=== PATIENT | female | born 2000 | race Two or more races ===

== ENCOUNTER → 2024-03-08 10:03 | Outpatient (CLI) | payer OTHER ==
[~2024-03-08 10:03] MED LIST: PRENATE DHA SO1 EAC1
== END | disposition home or self-care (01) ==
LOC: PRENATAL 10:03
PROVIDERS: ATTEND Obstetrics & Gynecology Maternal & Fetal Medicine
DX: O36.80X0 Pregnancy with inconclusive fetal viability, not applicable or unspecified (principal); Z36.82 Encounter for antenatal screening for nuchal translucency; Z36.9 Encounter for antenatal screening, unspecified; Z14.8 Genetic carrier of other disease; Z3A.12 12 weeks gestation of pregnancy

== ENCOUNTER 2024-03-09 09:15 | Emergency (ER) | payer OTHER ==
[~2024-03-09] VITALS: Ht 154.9 cm; Wt 58.1 kg
[2024-03-09] MEDS ORDERED: PRENATE DHA SO1 EAC1 (09:54)
[2024-03-09] MEDS ORDERED: 0.9 % SODIUM CHLORIDE 1,000 ML IV STA (10:04)
[2024-03-09] MEDS ORDERED: ONDANSETRON HCL 2 MG/ML VIAL IV STA (10:04)
[2024-03-09] MEDS ORDERED: FAMOTIDINE/PF 20 MG in 0.9 % SODIUM CHLORIDE 8 ML IV PUSH STA (10:05)
[2024-03-09] MEDS ORDERED: FAMOTIDINE/PF 20 MG/2 ML VIAL ONE (10:29)
[2024-03-09] MEDS ORDERED: ONDANSETRON HCL 2 MG/ML VIAL ONE (10:29)
[2024-03-09 10:52] LABS: HEMATOCRIT 40.9 % (36.0-45.00); MEAN CELL VOLUME 93.7 fL (80.00-100.00); MEAN CORPUSCULAR HEMOGLOBIN 32.1 pg (27.00-32.0); MEAN CORPUSCULAR HGB CONC 34.3 g/dl (32.0-36.0); PLATELET COUNT 203 K/uL (150-450); RED BLOOD COUNT 4.37 M/uL (4.00-6.00); RED CELL DISTRIBUTION WIDTH 12.9 % (11.5-14.5)
[2024-03-09 11:28] LABS: URINE APPEARANCE Cloudy; URINE BILIRRUBIN Negative (NEGATIVE); URINE BLOOD Negative; URINE COLOR Dark Yellow; URINE GLUCOSE Negative (NEGATIVE); URINE LEUKOCYTE Small; URINE NITRATE Negative; URINE PROTEIN Trace (NEGATIVE); URINE UROBILINOGEN 0.2 E.U./dl
[2024-03-09 11:31] LABS: URINE BACTERIA 8937.5 uL (0.0-1933); URINE CAST 1.61 uL (0.0-1.40); URINE EPITHELIAL CELLS 107.6 uL (0.0-38.8); URINE RBC 65.1 uL (0.0-20.8); URINE WBC 99.2 uL (0.0-23.2)
[2024-03-09 11:35] LABS: URINE KETONE >=160 (NEGATIVE)
[2024-03-09 12:17] LABS: CALCIUM 9.2 mg/dL (8.5-10.1); CREATININE SERUM 0.55 mg/dL (0.55-1.02); GFR 134.67; POTASSIUM 3.66 mEq/L (3.5-5.1)
== END 2024-03-09 15:17 | disposition home or self-care (01) ==
LOC: ER 09:17
PROVIDERS: Emergency Medicine
DX: O00.01 Abdominal pregnancy with intrauterine pregnancy (principal); R11.10 Vomiting, unspecified

== ENCOUNTER 2024-04-28 08:03 | Outpatient (CLI) | payer OTHER | END 2024-04-28 08:04 | disposition home or self-care (01) | LOC: PRENATAL 08:03 | PROVIDERS: ATTEND Obstetrics & Gynecology Maternal & Fetal Medicine | DX: O44.00 Complete placenta previa NOS or without hemorrhage, unspecified trimester (principal); Z3A.20 20 weeks gestation of pregnancy ==

== ENCOUNTER 2024-07-20 10:31 | Outpatient (CLI) | payer OTHER | END 2024-07-20 10:32 | disposition home or self-care (01) | LOC: PRENATAL 10:31 | PROVIDERS: ATTEND Obstetrics & Gynecology Maternal & Fetal Medicine | DX: O26.849 Uterine size-date discrepancy, unspecified trimester (principal); O36.8199 Decreased fetal movements, unspecified trimester, other fetus; O36.5990 Maternal care for other known or suspected poor fetal growth, unspecified trimester, not applicable or unspecified; Z3A.31 31 weeks gestation of pregnancy ==

== ENCOUNTER 2024-08-07 16:00 | Outpatient (CLI) | payer OTHER | END 2024-08-07 16:01 | disposition home or self-care (01) | LOC: PRENATAL 16:00 | PROVIDERS: ATTEND Obstetrics & Gynecology Maternal & Fetal Medicine | DX: O26.849 Uterine size-date discrepancy, unspecified trimester (principal); O36.8199 Decreased fetal movements, unspecified trimester, other fetus; O36.5990 Maternal care for other known or suspected poor fetal growth, unspecified trimester, not applicable or unspecified; Z3A.33 33 weeks gestation of pregnancy ==

== ENCOUNTER 2024-08-20 18:20 | Emergency (ER) | payer OTHER ==
[~2024-08-20] VITALS: Ht 154.9 cm; Wt 65.3 kg
[2024-08-20] MEDS ORDERED: ONDANSETRON HCL 2 MG/ML VIAL ONE (19:38)
[2024-08-20] MEDS ORDERED: FAMOTIDINE/PF 20 MG/2 ML VIAL ONE (19:38)
[2024-08-20] MEDS ORDERED: ACETAMINOPHEN 500 MG GEL..CAP PO ONE ×2 (19:38→19:45)
[2024-08-20] MEDS ORDERED: FAMOTIDINE/PF 20 MG/2 ML VIAL IV ONE (19:45)
[2024-08-20] MEDS ORDERED: ONDANSETRON HCL 2 MG/ML VIAL IV ONE (19:45)
[2024-08-20 20:03] LABS: BASO % 0.4 % (0.1-1.2); EOS # 0.04 (0.04-0.54); EOS % 0.5 % (0.7-7.0); HEMATOCRIT 33.5 % (34.1-44.9); HEMOGLOBIN 11.5 g/dL (11.2-15.7); LYMPH # 2.14 (1.18-3.74); LYMPH % 27.1 % (19.3-53.1); MEAN CORPUSCULAR HEMOGLOBIN 31.1 pg (25.6-32.2); MONO # 0.56 (0.24-0.82); MONO % 7.1 % (4.7-12.5); NEUT # 5.08 (1.56-6.13); NEUT % 64.4 % (34.0-71.1); PLATELET COUNT 246 K/uL (163-369)
[2024-08-20 20:22] LABS: PH,URINE 5.5 (5.0-8.0); URINE APPEARANCE Cloudy; URINE BILIRRUBIN Negative (NEGATIVE); URINE BLOOD Negative; URINE COLOR Yellow; URINE GLUCOSE Negative (NEGATIVE); URINE KETONE Trace (NEGATIVE); URINE LEUKOCYTE Moderate; URINE NITRATE Negative; URINE PROTEIN Negative (NEGATIVE); URINE UROBILINOGEN 0.2 E.U./dl
[2024-08-20 20:25] LABS: URINE EPITHELIAL CELLS 12.9 uL (0.0-38.8); URINE WBC 186.1 uL (0.0-23.2)
[2024-08-20 20:45] LABS: URINE CAST 1.17 uL (0.0-1.40); URINE YEAST NEGATIVE /hpf
[2024-08-20 20:53] LABS: ALBUMIN 2.7 gm/dL (3.4-5.0); BILIRUBIN TOTAL 0.28 mg/dL (0.3-1.2); CALCIUM 8.7 mg/dL (8.5-10.1); CREATININE SERUM 0.48 mg/dL (0.55-1.02); GFR 156.33; GLOBULINA 4.3 G/DL (2.4-3.5); POTASSIUM 3.47 mEq/L (3.5-5.1)
[2024-08-20 21:07] LABS: COVID-19 AG NEGATIVE (NEGATIVE)
[2024-08-20 21:09] LABS: INFLUENZA A AG NEGATIVE (NEGATIVE); INFLUENZA B AG NEGATIVE (NEGATIVE)
[2024-08-20] MEDS ORDERED: CEFTRIAXONE SODIUM 1,000 MG VIAL ONE (21:27)
[2024-08-20] MEDS ORDERED: CEPHALEXIN500 M1 PO (21:27)
[2024-08-20] MEDS ORDERED: CEFTRIAXONE SODIUM 1,000 MG VIAL IM ONE (21:30)
== END 2024-08-20 21:49 ==
LOC: ER 18:37
PROVIDERS: General Practice
DX: O23.40 Unspecified infection of urinary tract in pregnancy, unspecified trimester (principal); R11.0 Nausea; R51.9 Headache, unspecified; Z20.822 Contact with and (suspected) exposure to COVID-19

== ENCOUNTER 2024-09-07 14:29 | Outpatient (CLI) | payer OTHER ==
[2024-09-07 14:06] VITALS: BP 112/77
[~2024-09-07 14:29] MED LIST changes: +CEPHALEXIN500 M1 PO
[2024-09-07] MEDS ORDERED: RINGERS SOLUTION,LACTATED 1,000 ML IV SCH (14:45)
[2024-09-07 15:06] LABS: URINE APPEARANCE Turbid; URINE BILIRRUBIN Negative (NEGATIVE); URINE BLOOD Moderate; URINE COLOR Yellow; URINE GLUCOSE Negative (NEGATIVE); URINE KETONE Negative (NEGATIVE); URINE LEUKOCYTE Moderate; URINE NITRATE Negative; URINE PROTEIN Trace (NEGATIVE); URINE UROBILINOGEN 0.2 E.U./dl
[2024-09-07 15:06] LABS: BASO % 0.3 % (0.1-1.2); EOS # 0.03 (0.04-0.54); EOS % 0.3 % (0.7-7.0); LYMPH # 1.81 (1.18-3.74); LYMPH % 16.2 % (19.3-53.1); MEAN PLATELET VOLUME 11.40 fl (9.4-12.4); MONO # 0.73 (0.24-0.82); MONO % 6.5 % (4.7-12.5); NEUT # 8.50 (1.56-6.13); NEUT % 76.0 % (34.0-71.1); RED CELL DISTRIBUTION WIDTH 13.2 % (11.6-14.4)
[2024-09-07 15:09] LABS: URINE CAST 3.37 uL (0.0-1.40); URINE EPITHELIAL CELLS 69.2 uL (0.0-38.8); URINE RBC 20.8 uL (0.0-20.8); URINE WBC 308.6 uL (0.0-23.2)
[2024-09-07 15:28] LABS: TYPE CELLS SQUAMOUS; URINE BACTERIA > 9821.5 uL (0.0-1933); URINE MUCUS SCANT
[2024-09-07 16:36] VITALS: BP 113/69
[2024-09-07 20:00] VITALS: BP 110/64
[2024-09-07 23:12] VITALS: BP 112/71
[2024-09-08 03:13] VITALS: BP 112/70
[2024-09-08 07:35] VITALS: BP 103/58
[2024-09-08 10:24] VITALS: BP 103/58
== END 2024-09-08 10:41 | disposition home or self-care (01) ==
LOC: OBS/DEL 14:29
PROVIDERS: ATTEND Obstetrics & Gynecology
DX: O26.893 Other specified pregnancy related conditions, third trimester (principal); O26.849 Uterine size-date discrepancy, unspecified trimester; O36.8199 Decreased fetal movements, unspecified trimester, other fetus; Z3A.37 37 weeks gestation of pregnancy

== ENCOUNTER 2024-09-09 01:29 | Inpatient (IN) | payer OTHER ==
[~2024-09-09] VITALS: Ht 154.9 cm; Wt 68.5 kg
[2024-09-09 00:50] VITALS: BP 122/67
[2024-09-09] MEDS ORDERED: AMPICILLIN SODIUM 2,000 MG VIAL IV ONE (01:45)
[2024-09-09] MEDS ORDERED: MORPHINE SULFATE 4 MG/ML VIAL IV ONE (01:45)
[2024-09-09] MEDS ORDERED: RINGERS SOLUTION,LACTATED 1,000 ML IV SCH (01:45)
[2024-09-09 03:07] LABS: BASO % 0.3 % (0.1-1.2); EOS # 0.05 (0.04-0.54); EOS % 0.5 % (0.7-7.0); LYMPH # 1.69 (1.18-3.74); LYMPH % 16.0 % (19.3-53.1); MEAN PLATELET VOLUME 11.40 fl (9.4-12.4); MONO # 0.57 (0.24-0.82); MONO % 5.4 % (4.7-12.5); NEUT # 8.19 (1.56-6.13); NEUT % 77.2 % (34.0-71.1); RED CELL DISTRIBUTION WIDTH 13.3 % (11.6-14.4)
[2024-09-09 03:08] LABS: URINE APPEARANCE Cloudy; URINE BILIRRUBIN Negative (NEGATIVE); URINE BLOOD Small; URINE COLOR Yellow; URINE GLUCOSE Negative (NEGATIVE); URINE KETONE Negative (NEGATIVE); URINE LEUKOCYTE Trace; URINE NITRATE Negative; URINE PROTEIN Negative (NEGATIVE); URINE UROBILINOGEN 0.2 E.U./dl
[2024-09-09 03:11] LABS: URINE BACTERIA 3973.0 uL (0.0-1933); URINE EPITHELIAL CELLS 66.9 uL (0.0-38.8); URINE RBC 13.3 uL (0.0-20.8); URINE WBC 56.2 uL (0.0-23.2)
[2024-09-09 03:34] LABS: INR 0.97
[2024-09-09 03:38] LABS: ALT/SGPT 18.0 U/L (12-78); AST/SGOT 18.0 U/L (15-37); BILIRUBIN TOTAL 0.41 mg/dL (0.3-1.2); BUN CREA RATIO 17.0 (7.0-25.0); CREATININE SERUM 0.41 mg/dL (0.55-1.02); GFR 187.52; GLOBULINA 3.8 G/DL (2.4-3.5); GLUCOSE FASTING 87.0 mg/dL (65-100); OSMOLALITY SERUM 277.0 MOSM/KG (275-295)
[2024-09-09 04:05] LABS: URINE CAST 0.14 uL (0.0-1.40)
[2024-09-09] MEDS ORDERED: AMPICILLIN SODIUM 1,000 MG VIAL IV SCH (05:00)
[2024-09-09] MEDS ORDERED: OXYTOCIN 500 ML IV SCH (07:15)
[2024-09-09] MEDS ORDERED: PROMETHAZINE HCL 25 MG/ML AMPUL IV STA (07:18)
[2024-09-09] MEDS ORDERED: MORPHINE SULFATE 4 MG/ML VIAL IV STA (07:18)
[2024-09-09 07:24] VITALS: BP 115/67
[2024-09-09 11:12] VITALS: BP 124/54
[2024-09-09 11:26] VITALS: BP 121/62
[2024-09-09] MEDS ORDERED: ACETAMINOPHEN 500 MG GEL..CAP PO PRN (11:45)
[2024-09-09] MEDS ORDERED: ERYTHROMYCIN BASE OPHT 1GM EACH TUBE OP ONE (11:45)
[2024-09-09] MEDS ORDERED: CHLORHEXIDINE GLUCONATE 120 ML BOTTLE TOP ONE (11:45)
[2024-09-09] MEDS ORDERED: LIDOCAINE HCL 1% 10ML VIAL IJ ONE (11:45)
[2024-09-09] MEDS ORDERED: HYDROCORTISONE 2.5% 30 GM TUBE RECTAL SCH (13:00)
[2024-09-09] MEDS ORDERED: BENZOCAINE/MENTHOL 90 ML BOTTLE TOP SCH (13:00)
[2024-09-09 14:35] VITALS: BP 112/62
[2024-09-09 16:00] VITALS: BP 109/77
[2024-09-10 01:09] VITALS: BP 113/74
[2024-09-10 01:41] LABS: BASO % 0.2 % (0.1-1.2); EOS # 0.05 (0.04-0.54); EOS % 0.4 % (0.7-7.0); LYMPH # 2.33 (1.18-3.74); LYMPH % 17.9 % (19.3-53.1); MEAN PLATELET VOLUME 11.40 fl (9.4-12.4); MONO # 1.01 (0.24-0.82); MONO % 7.8 % (4.7-12.5); NEUT # 9.56 (1.56-6.13); NEUT % 73.3 % (34.0-71.1); RED CELL DISTRIBUTION WIDTH 13.4 % (11.6-14.4)
[2024-09-10 08:34] VITALS: BP 100/60
[2024-09-10 16:00] VITALS: BP 116/75
[2024-09-11 00:52] VITALS: BP 106/68
[2024-09-11 08:33] VITALS: BP 109/66; O2SAT 98
== END 2024-09-11 16:26 | disposition home or self-care (01) | DRG 807 ==
LOC: LDR 01:29 → OB/GYN 01:29 → LDR 10:12 → OB/GYN 11:45
PROVIDERS: Specialist; ADMIT Obstetrics & Gynecology; ATTEND Obstetrics & Gynecology
PROC: 10E0XZZ Delivery of Products of Conception, External Approach (ICD-10-PCS; principal; 2024-09-09)
PROC: 0HQ9XZZ Repair Perineum Skin, External Approach (ICD-10-PCS; 2024-09-09)
PROC: 4A1HXCZ Monitoring of Products of Conception, Cardiac Rate, External Approach (ICD-10-PCS; 2024-09-09)
DX: O70.0 First degree perineal laceration during delivery (principal); Z37.0 Single live birth; Z3A.39 39 weeks gestation of pregnancy